=== PATIENT | male | born 1970 | race Caucasian/White ===

== ENCOUNTER → 2024-12-13 | Outpatient (REF) | payer OTHER ==
[2024-12-13 12:36] LABS: ALT/SGPT 25 U/L (7.0-40); AST/SGOT 24 U/L (<34); CALCIUM LEVEL 9.0 MG/DL (8.5-10.1); CARBON DIOXIDE LEVEL 30 MMOL/L (20-31); CHLORIDE LEVEL 106 MMOL/L (98-107); CHOLESTEROL LEVEL 198 MG/DL (<200); CHOLESTEROL RISK RATIO 4.62 (<5); CREATININE FOR GFR 0.85 MG/DL (0.70-1.30); GLOMERULAR FILTRATION RATE > 90.0 (>56); LDL CHOLESTEROL 126.6 MG/DL (<100); NON-HDL-C 155.2 MG/DL; POTASSIUM SERUM 5.1 MMOL/L (3.5-5.1); SODIUM LEVEL 140 MMOL/L (136-145); TRIGLYCERIDES LEVEL 143 MG/DL (<150)
[2024-12-13 13:26] LABS: ESTIMATED AVERAGE GLUCOSE 100.0 MG/DL (60-110)
== END ==
LOC: M LAB REF 12:04
PROVIDERS: ATTEND Student in an Organized Health Care Education/Training Program
DX: Z68.20 Body mass index [BMI] 20.0-20.9, adult (principal)

== ENCOUNTER → 2025-02-02 | Outpatient (CLI) | payer OTHER | LOC: M RAD 10:59 | PROVIDERS: ATTEND Student in an Organized Health Care Education/Training Program | DX: F17.210 Nicotine dependence, cigarettes, uncomplicated (principal) ==